=== PATIENT | female | born 1995 | race Caucasian/White ===

== ENCOUNTER 2021-02-07 10:56 | Observation (INO) | payer MEDICAID ==
[~2021-02-07] VITALS: Ht 157.5 cm; Wt 55.8 kg
== END 2021-02-07 13:56 | disposition home or self-care (01) ==
LOC: 8 EST LDRP 10:56
PROVIDERS: ADMIT Obstetrics & Gynecology; ATTEND Obstetrics & Gynecology
DX: Z34.93 Encounter for supervision of normal pregnancy, unspecified, third trimester (principal); Z3A.29 29 weeks gestation of pregnancy
CPT/HCPCS: 36415; 59025; 86850; 86900; 86901; G0378; 99281